=== PATIENT | female | born 1980 | race Caucasian/White ===

== ENCOUNTER → 2023-03-09 | Outpatient (CLI) | payer BC, OTHER | LOC: LAB SHORT 11:31 → PLD 11:31 | DX: D22.5 Melanocytic nevi of trunk (principal); B07.9 Viral wart, unspecified; L57.0 Actinic keratosis | CPT/HCPCS: 88305 ==

== ENCOUNTER → 2023-04-19 | Outpatient (CLI) | payer BC, OTHER ==
[2023-04-19 16:28] LABS: BASOPHILS ABSOLUTE AUTO 0.03 K/mm3 (0.00-0.23); BASOPHILS PERCENT AUTO 1 % (0-2); EOSINOPHILS ABSOLUTE AUTO 0.06 K/mm3 (0.00-0.68); EOSINOPHILS PERCENT AUTO 1 % (0-6); Hemoglobin 13.7 g/dL (11.5-16.0); IMMATURE GRAN ABSOLUTE AUTO 0.01 K/mm3 (0.00-0.10); IMMATURE GRAN PERCENT AUTO 0 % (0-1); LYMPHOCYTES ABSOLUTE AUTO 1.59 K/mm3 (0.84-5.20); LYMPHOCYTES PERCENT AUTO 27 % (21-46); MONOCYTES ABSOLUTE AUTO 0.35 K/mm3 (0.16-1.47); MONOCYTES PERCENT AUTO 6 % (4-13); Mean Corpuscular HGB 30.4 pg (26.0-34.0); Mean Corpuscular HGB Conc 34.3 g/dL (31.5-36.5); Mean Corpuscular Volume 89 fL (80-100); Mean Platelet Volume 8.8 fL (9.1-12.4); NEUTROPHILS PERCENT AUTO 66 % (41-73); Platelet Count 284 K/mm3 (150-400); RDW Coefficient Variation 13.2 % (11.7-14.2); RDW Standard Deviation 42.6 fL (35.1-46.3); White Blood Cell Count 5.94 K/mm3 (4.00-11.30)
[2023-04-19 16:37] LABS: Albumin, Blood 4.4 g/dL (3.4-5.0); Albumin/Globulin Ratio 1.3 (0.8-1.8); Bilirubin, Total 0.4 mg/dL (0.1-1.0); Bun/Creatinine Ratio 11.8 (12.0-20.0); Calcium, Blood 9.3 mg/dL (8.5-10.1); Creatinine, Blood 0.85 mg/dL (0.40-1.00); Globulin, Blood 3.5 g/dL (2.2-4.0); Total Protein, Blood 7.9 g/dL (6.4-8.2)
== END | disposition home or self-care (01) ==
LOC: LAB 16:21 → LAB SHORT 16:21
PROVIDERS: Physician Assistant Surgical
DX: R10.13 Epigastric pain (principal)
CPT/HCPCS: 80053; 83690; 85025

== ENCOUNTER → 2024-03-06 | Outpatient (CLI) | payer OTHER ==
[2024-03-12 18:03] LABS: HPV HIGH RISK BY TMA Not Detected; HPV SOURCE Cervical/Vag
== END | disposition home or self-care (01) ==
LOC: LAB SHORT 13:54 → LAB 13:54
PROVIDERS: Family Medicine
DX: Z01.419 Encounter for gynecological examination (general) (routine) without abnormal findings (principal)
CPT/HCPCS: 87624; G0123

== ENCOUNTER → 2024-08-22 | Outpatient (CLI) | payer OTHER | END | disposition home or self-care (01) | LOC: LAB SHORT 12:13 → LAB 12:13 | DX: N39.41 Urge incontinence (principal) | CPT/HCPCS: 87086 ==

== ENCOUNTER → 2025-04-03 | Outpatient (CLI) | payer OTHER ==
[~2025-04-03] MED LIST: FOLIC ACID0.8 MG PO; Flonase 0.05% N16 GM; GUAI600T33 PO; HYDROCORTISONE30 GM TOP; MAGNESIUM CITR100 MG PO; Methocarbamol500 MG PO; ONDA4ODT MM; POLYETHYLENE G500 G1 PO; PRENATAL TABLE1 EAC2 PO; PSEUDOEPHEDRINE30 M1 PO; SERT100 PO; SUMA25 PO; TRAZ50 PO
[2025-04-03 10:33] LABS: Source, Urine Clean Catch
[2025-04-03 11:57] LABS: Red Blood Cells, Urine 0-2 /hpf (0-2); White Blood Cells, Urine 0-2 /hpf (0-5)
[2025-04-03 12:00] LABS: U Amphetamine Screen Not Detected; U Barbiturate Screen Not Detected; U Benzodiazapine Screen Not Detected; U Buprenorphine Screen Not Detected; U Cannabinoids Screen DETECTED; U Cocaine Screen Not Detected; U Methadone Screen Not Detected; U Methamphetamine Screen Not Detected; U Opiates Screen Not Detected; U Oxycodone Screen Not Detected; U Phencyclidine Screen Not Detected
== END ==
LOC: LAB SHORT 10:32 → LAB 10:32
PROVIDERS: Obstetrics & Gynecology
DX: Z34.81 Encounter for supervision of other normal pregnancy, first trimester (principal)
CPT/HCPCS: 81015; 87086

== ENCOUNTER 2025-04-11 10:40 | Day surgery (SDC) | payer OTHER ==
[~2025-04-11] VITALS: Ht 160 cm; Wt 67.0 kg
[~2025-04-11 10:40] MED LIST changes: +CeFAZolin Sodium 2,000 MG in NS 100 ML IV SCH
[2025-04-11 11:03] VITALS: BP 114/72
--- NOTE | 2025-04-11 11:08 | NUR ---
Ambulatory in Day Surgery History, Chart, Medications and Allergies reviewed before start of procedure. Pre-Op teaching done. Pt verbalizes understanding. Patient States Post-Procedure ride home has been arranged.
[2025-04-11] MEDS ORDERED: Methylergonovine Maleate 0.2MG / ML 1ML Amp ONE (11:56)
[2025-04-11] MEDS ORDERED: Midazolam HCl 1MG / ML 2ML Vial ONE (12:09)
[2025-04-11] MEDS ORDERED: FentaNYL Citrate 50 MCG/ML 2 ML Injection ONE (12:16)
[2025-04-11] MEDS ORDERED: Dexamethasone Sod Phos 10 MG/ML 1ML VIAL ONE (12:18)
[2025-04-11] MEDS ORDERED: Ondansetron HCl 2 MG / ML 2ML Vial ONE (12:18)
[2025-04-11] MEDS ORDERED: Ondansetron HCl 2 MG / ML 2ML Vial IV PRN ×2 (12:35→13:20)
[2025-04-11] MEDS ORDERED: HYDROmorphone HCl/Pf 1MG SYR IV PRN ×2 (12:35→12:40)
[2025-04-11] MEDS ORDERED: FentaNYL Citrate 50 MCG/ML 2 ML Injection IV PRN ×2 (12:35)
[2025-04-11 12:40] VITALS: BP 93/55
[2025-04-11 13:08] VITALS: BP 102/65
[2025-04-11 13:10] VITALS: BP 102/65
[2025-04-11] MEDS ORDERED: OxyCODONE 5 mg/Acetamin 325 mg TABLET PO PRN (13:20)
[2025-04-11 13:30] VITALS: BP 107/65
[2025-04-11 13:45] VITALS: BP 108/56
--- NOTE | 2025-04-11 15:00 | NUR ---
TO STEP POST D&C. REPORTS PAIN 7/10, MINIMAL RED DRAINAGE ON STALIN PAD. DENIES NAUSEA, SOB. EDUARDO PO WELL. VERBALIZED UNDERSTANDING OF DC INSTRUCTIONS. UP TO VOID, STEADY GAIT. STALIN BOTTLE GIVEN FOR COMFORT. DC'D IV INTACT. DC'D VIA WC TO PRIVATE CAR WITH EVENT STAFF.
== END 2025-04-11 14:00 | disposition home or self-care (01) ==
LOC: ORSCMMR 10:40 → ORD 11:45 → ORSCMMR 14:00
PROVIDERS: Obstetrics & Gynecology
PROC: 10D17ZZ Extraction of Products of Conception, Retained, Via Natural or Artificial Opening (ICD-10-PCS; principal; 2025-04-11 11:45)
DX: O02.1 Missed abortion (principal); M79.7 Fibromyalgia; F41.9 Anxiety disorder, unspecified; F32.A Depression, unspecified; Z87.891 Personal history of nicotine dependence
CPT/HCPCS: 88305; A9270; J0690; J1100; J2210; J2250; J2405; J2704; J3010; J7120